=== PATIENT | female | born 1945 | race African-American/Black ===

== ENCOUNTER 2016-04-21 08:49 | Emergency (ER) | payer MEDICARE, OTHER ==
[~2016-04-21] VITALS: Ht 170.2 cm; Wt 68.0 kg
[~2016-04-21 08:49] MED LIST: ALBUTEROL SULF8.5 GM INH; ARMOUR THYROID120 MG ORAL; ARMOUR THYROID15 MG PO; ARMOUR THYROID30 MG ORAL; ARMOUR THYROID60 MG ORAL; ATENOLOL25 MG ORAL; ATENOLOL50 MG ORAL; AZITHROMYCIN250 MG ORAL; BENADRYL25 M3 PO; CIPRO500 MG PO; DOXEPIN HCL10 MG ORAL; DOXEPIN HCL25 MG ORAL; HYDROCHLOROTH12.5 M2 ORAL; HYDROCHLOROTHIA25 MG PO; KENALOG 0.1% CR15 GM APPLIC; NIFEDICAL XL30 MG ORAL; PHENERGAN6.25 MG/5 ORAL; PREDNISONE20 MG ORAL; SINEQUAN25 MG ORAL; TENORMIN25 MG ORAL
[2016-04-21] MEDS ORDERED: ARMOUR THYROID30 MG ORAL (09:01)
--- NOTE | 2016-04-21 09:10 | Emergency Room Report ---
History of Present Illness General Chief Complaint: Upper Respiratory Illness Source: Patient Present Illness HPI Patient presents with complaints of cough and congestion Ongoing since last month at the end of March Patient was at that time prescribed cough syrup along with Cipro Patient reports having a reaction with jaw stiffness And bruising with that medication therefore she stopped that medicine Denies any headache or visual changes denies any fevers denies any vomiting or diarrhea Denies any pleurisy Allergies: Coded Allergies: CIPROFLOXACIN (Verified Allergy, Unknown, 04/21/16) Patient History Past Medical History: see triage record Pertinent Family History: none Reviewed Nursing Documentation: PMH: Agreed, PSxH: Agreed Nursing Documentation-PMH Past Medical History: No History, Except For Hx Cardiac Problems: Yes - Hypothyroidism Hx Hypertension: Yes Hx Pacemaker: No Hx Asthma: No Hx COPD: No Hx Diabetes: No Hx Cancer: No Hx Gastrointestinal Problems: No Hx Dialysis: No History Of Psychiatric Problem: No Hx Neurological Problems: No Hx Cerebrovascular Accident: No Hx Seizures: No Review of Systems All Other Systems: negative except mentioned in HPI Physical Exam Vital Signs Date Time Temp Pulse Resp B/P Pulse Ox O2 Delivery O2 Flow Rate FiO2 04/21/16 08:53 97.7 77 16 164/104 99 Room Air Sp02 EP Interpretation: reviewed, normal General Appearance: well appearing, no apparent distress Head: normocephalic, atraumatic Eyes: bilateral eye EOMI, bilateral eye PERRL ENT: hearing grossly normal, normal pharynx, TMs + canals normal, uvula midline Neck: full range of motion, supple, no meningismus, no bony tend Respiratory: no rhonchi, no respiratory distress, no retraction, no accessory muscle use, crackles - Noted in both lower lobes Cardiovascular #1: normal peripheral pulses, regular rate, rhythm, no edema, no gallop, no JVD, no murmur Gastrointestinal: normal bowel sounds, non tender, soft, no mass, no organomegaly, non-distended, no guarding, no hernia, no pulsatile mass, no rebound Genitourinary: no CVA tenderness Musculoskeletal: normal inspection Neurologic: oriented x3, responsive, shellacker III-XII nml as tested, motor strength/ tone normal, sensory intact Psychiatric: mood/affect normal Skin: normal color, no rash, warm/dry, palpation normal Lymphatic: normal inspection, no adenopathy Medical Decision Making Diagnostic Impression: Primary Impression: Upper respiratory infection ER Course Multiple differentials are considered including but not limited to pneumonia, CHF Patient's chest x-ray is appropriate patient will have her medication changed as she had a reaction to the Cipro And will return with any changes Chest X-Ray Diagnostic Results EP Interpretation: Yes Findings: no consolidation, no effusion, no pneumothorax Number of Views: 1 Last Vital Signs Date Time Temp Pulse Resp B/P Pulse Ox O2 Delivery O2 Flow Rate FiO2 04/21/16 08:53 97.7 77 16 164/104 99 Room Air Status: improved Disposition: HOME, SELF-CARE Condition: Improved Scripts Prednisone* (PREDNISONE*) 20 Mg Tablet 20 MG ORAL BID, #5 TAB Prov: MARCO MARTINEZ D.O. 04/21/16 Albuterol Sulfate* (ALBUTEROL SULFATE MDI*) 8.5 Gm Hfa.aer.ad 2 PUFF INH Q6H, #1 INH 0 Refills Prov: MARCO MARTINEZ D.O. 04/21/16 Additional Instructions: Patient is provided with the discharge instructions notified to follow up with primary doctor in the next 2-3 days otherwise return to the er with any worsening symptoms. Please note that this report is being documented using Paper[employer]li technology. This can lead to erroneous entry secondary to incorrect interpretation by the dictating instrument. MARCO MARTINEZ D.O. Apr 21, 2016 09:10
[2016-04-21] MEDS ORDERED: Ipratropium 0.02% Inh Soln 2.5ml UD HHN ONE (09:15)
[2016-04-21] MEDS ORDERED: Albuterol ud Inhalation HHN ONE (09:15)
[2016-04-21] MEDS ORDERED: AZITHROMYCIN250 MG ORAL (09:52)
[2016-04-21] MEDS ORDERED: ALBUTEROL SULF8.5 GM INH (09:52)
[2016-04-21] MEDS ORDERED: PREDNISONE20 MG ORAL (09:52)
[2016-04-21 09:59] VITALS: BP 155/84
--- NOTE | 2016-04-21 12:20 | Diagnostic Imaging Report ---
Clinical history: Acute shortness of breath. Technique: Portable AP chest radiograph was obtained. Comparison: 01/16/16. Findings: The lungs are well inflated and clear. There is no pneumonia or pulmonary edema. There is no pleural effusion or pneumothorax. The cardiac and mediastinal silhouettes are normal in appearance. The bony thorax is unremarkable. Impression: No acute cardiopulmonary process.
== END 2016-04-21 10:00 | disposition home or self-care (01) ==
LOC: EMR 09:15
DX: J06.9 Acute upper respiratory infection, unspecified (principal); I10 Essential (primary) hypertension; E03.9 Hypothyroidism, unspecified; Z88.1 Allergy status to other antibiotic agents
CPT/HCPCS: 71010; 94640; 94664; 99284

== ENCOUNTER 2016-09-19 11:03 | Emergency (ER) | payer MEDICARE, OTHER ==
[~2016-09-19] VITALS: Ht 170.2 cm; Wt 70.3 kg
[2016-09-19 11:15] VITALS: BP 160/101
--- NOTE | 2016-09-19 12:16 | Emergency Room Report ---
History of Present Illness General Chief Complaint: Medication Refill Source: Patient Present Illness HPI The patient states she is out of her hypertension medications. She states that her primary care physician retired. She states that she has previously had very difficult to control blood pressure and is on multiple medications. She is planning on obtaining a new primary care physician through her insurance company. She has no other complaints or symptoms. She denies chest pain or shortness of breath. She denies headaches. She is here for medication refill. Allergies: Coded Allergies: CIPROFLOXACIN (Verified Allergy, Unknown, 04/21/16) Patient History Past Medical History: see triage record, HTN, other - Hypothyroid Reviewed Nursing Documentation: PMH: Agreed, PSxH: Agreed Nursing Documentation-PMH Hx Cardiac Problems: Yes - Hypothyroidism Hx Hypertension: Yes Hx Pacemaker: No Hx Asthma: No Hx COPD: No Hx Diabetes: No Hx Cancer: No Hx Gastrointestinal Problems: No Hx Dialysis: No Hx Neurological Problems: No Hx Cerebrovascular Accident: No Hx Seizures: No Review of Systems All Other Systems: negative except mentioned in HPI Physical Exam Vital Signs Date Time Temp Pulse Resp B/P Pulse Ox O2 Delivery O2 Flow Rate FiO2 09/19/16 11:10 98.1 60 20 160/101 100 Room Air Sp02 EP Interpretation: reviewed, normal General Appearance: no apparent distress, alert, GCS 15, non-toxic Head: normocephalic, atraumatic Eyes: bilateral eye PERRL, bilateral eye normal inspection ENT: hearing grossly normal, normal pharynx, no angioedema, normal voice Neck: full range of motion Respiratory: no respiratory distress, no retraction, no accessory muscle use, speaking full sentences Rectal: deferred Musculoskeletal: back normal, gait/station normal, normal range of motion, non- tender Neurologic: alert, oriented x3, responsive, motor strength/tone normal, sensory intact, speech normal Psychiatric: judgement/insight normal, memory normal, mood/affect normal, no suicidal/homicidal ideation Skin: normal color, no rash, warm/dry, well hydrated Medical Decision Making Diagnostic Impression: Primary Impression: Hypertension ER Course This patient presents medication refill. A refill her previously prescribed medications. She is instructed to obtain any primary care physician and that she should be seeing her primary care physician for followup and monitoring. She was educated on the dangers of obtaining her medications in emergency department. She indicated understanding. Last Vital Signs Date Time Temp Pulse Resp B/P Pulse Ox O2 Delivery O2 Flow Rate FiO2 09/19/16 11:15 98.1 20 160/101 100 Room Air 09/19/16 11:10 60 Disposition: HOME, SELF-CARE Condition: Referrals: NOT CHOSEN [facility]/,REFERRING (PCP) Patient Instructions: Medicine Refill at the Emergency Department SHAREE OSWALD D.O. Sep 19, 2016 12:15
[2016-09-19] MEDS ORDERED: HYDROCHLOROTHIA25 MG ORAL (12:20)
[2016-09-19] MEDS ORDERED: LOSARTAN POTASS25 MG ORAL (12:20)
[2016-09-19] MEDS ORDERED: DOXEPIN HCL25 MG ORAL (12:20)
[2016-09-19] MEDS ORDERED: ATENOLOL25 MG ORAL (12:20)
[2016-09-19 12:25] VITALS: BP 157/94
== END 2016-09-19 12:27 | disposition home or self-care (01) ==
LOC: EMR 11:31
DX: Z76.0 Encounter for issue of repeat prescription (principal); I10 Essential (primary) hypertension; E03.9 Hypothyroidism, unspecified
CPT/HCPCS: 99282

== ENCOUNTER 2017-11-17 18:43 | Emergency (ER) | payer MEDICARE, OTHER ==
[~2017-11-17] VITALS: Ht 170.2 cm; Wt 75.7 kg
[~2017-11-17 18:43] MED LIST changes: +HYDROCHLOROTHIA25 MG ORAL; +LOSARTAN POTASS25 MG ORAL
[2017-11-17 18:59] VITALS: BP 214/126
[2017-11-17 19:43] LABS: BASOPHILS % (AUTO) 1.2 % (0.0-2.0); EOSINOPHILS % (AUTO) 0.6 % (0.0-3.0); HEMATOCRIT 43.8 % (37.0-47.0); HEMOGLOBIN 14.9 G/DL (12.0-16.0); LYMPHOCYTES % (AUTO) 30.5 % (20.0-45.0); MEAN CORPUSCULAR VOLUME 94 FL (80-99); MONOCYTES % (AUTO) 6.2 % (1.0-10.0); NEUTROPHILS % (AUTO) 61.6 % (45.0-75.0); PLATELET COUNT 242 K/UL (150-450); RED BLOOD COUNT 4.66 M/UL (4.20-5.40); RED CELL DISTRIBUTION WIDTH 12.6 % (11.6-14.8); WHITE BLOOD COUNT 7.6 K/UL (4.8-10.8)
[2017-11-17 19:48] LABS: ANION GAP 10 mmol/L (5-15); BLOOD UREA NITROGEN 14 mg/dL (7-18); CALCIUM 9.4 MG/DL (8.5-10.1); CARBON DIOXIDE 29 MMOL/L (21-32); CHLORIDE 103 MMOL/L (98-107); CREATININE 1.2 MG/DL (0.55-1.30); POTASSIUM 3.5 MMOL/L (3.5-5.1); SODIUM 142 MMOL/L (136-145)
[2017-11-17 20:02] LABS: ALANINE AMINOTRANSFERASE 15 U/L (12-78); ALBUMIN 4.2 G/DL (3.4-5.0); ALKALINE PHOSPHATASE 94 U/L (46-116); ASPARTATE AMINO TRANSFERASE 17 U/L (15-37); BILIRUBIN,TOTAL 0.5 MG/DL (0.2-1.0); CKMB < 0.5 NG/ML (0.0-3.6); CREATINE KINASE 86 U/L (26-308)
[2017-11-17 20:10] VITALS: BP 200/104
--- NOTE | 2017-11-17 20:32 | Emergency Room Report ---
History of Present Illness General Chief Complaint: Hypertension Source: Patient Present Illness HPI This patient presents for high blood pressure. The patient has no specific physical complaints. She states that she was going to a routine appointment with her primary care physician to have her routine thyroid checked. During that visit she was identified to have a systolic blood pressure over 200. Her primary care physician sent her here to the emergency department for further evaluation. Patient denies headache or neck pain. She denies blurry vision. She denies chest pain or shortness of breath. She states that she has had difficult to control blood pressure for a very long time. She states the blood pressure has rarely been under control and she has been followed by a electronic security specialist. She states her blood pressure is almost never under 150s systolic. Allergies: Coded Allergies: CIPROFLOXACIN (Verified Allergy, Unknown, 04/21/16) Patient History Past Medical History: see triage record, HTN, other - Hypothyroid Social History: Denies: smoking, alcohol use, drug use Reviewed Nursing Documentation: PMH: Agreed; PSxH: Agreed Nursing Documentation-PMH Hx Cardiac Problems: Yes - Hypothyroidism Hx Hypertension: Yes Hx Pacemaker: No Hx Asthma: No Hx COPD: No Hx Diabetes: No Hx Cancer: No Hx Gastrointestinal Problems: No Hx Dialysis: No Hx Neurological Problems: No Hx Cerebrovascular Accident: No Hx Seizures: No Review of Systems All Other Systems: negative except mentioned in HPI Physical Exam Vital Signs Date Time Temp Pulse Resp B/P (MAP) Pulse Ox O2 Delivery O2 Flow Rate FiO2 11/17/17 18:50 97.9 53 17 214/126 97 Room Air 97.9 Sp02 EP Interpretation: reviewed, normal General Appearance: no apparent distress, alert, GCS 15, non-toxic Head: normocephalic, atraumatic Eyes: bilateral eye normal inspection, bilateral eye PERRL ENT: hearing grossly normal, normal pharynx, no angioedema, normal voice Neck: full range of motion, supple/symm/no masses Respiratory: chest non-tender, lungs clear, normal breath sounds, no respiratory distress, no retraction, no accessory muscle use, speaking full sentences Cardiovascular #1: regular rate, rhythm, no edema Gastrointestinal: normal bowel sounds, non tender, soft, non-distended, no guarding, no rebound Rectal: deferred Musculoskeletal: back normal, gait/station normal, normal range of motion, non- tender Neurologic: alert, oriented x3, responsive, motor strength/tone normal, sensory intact, speech normal Psychiatric: judgement/insight normal, memory normal, mood/affect normal, no suicidal/homicidal ideation Skin: normal color, no rash, warm/dry, well hydrated Medical Decision Making Diagnostic Impression: Primary Impression: Hypertension ER Course This patient presents with hypertension. She is asymptomatic. Also reassuring is a patient's laboratory workup which is unremarkable. This includes evaluation of her renal function with a BNP. Troponin is negative. Chest x- ray is unremarkable. This is chronic hypertension. I did review the patient's medications. She is on atenolol 25 mg once daily. I am unsure why she is only on one medication. Possibly she has had intolerances to other medications. I will start the patient on lisinopril 10 mg oral daily. She is instructed to follow-up closely with her primary care physician and monitor her blood pressure. At this time I did not identify an emergency medical condition. The patient is given close return precautions and follow-up instructions. Laboratory Tests Test 11/17/17 19:25 White Blood Count 7.6 K/UL (4.8-10.8) Red Blood Count 4.66 M/UL (4.20-5.40) Hemoglobin 14.9 G/DL (12.0-16.0) Hematocrit 43.8 % (37.0-47.0) Mean Corpuscular Volume 94 FL (80-99) Mean Corpuscular Hemoglobin 32.1 PG (27.0-31.0) H Mean Corpuscular Hemoglobin Concent 34.1 G/DL (32.0-36.0) Red Cell Distribution Width 12.6 % (11.6-14.8) Platelet Count 242 K/UL (150-450) Mean Platelet Volume 7.0 FL (6.5-10.1) Neutrophils (%) (Auto) 61.6 % (45.0-75.0) Lymphocytes (%) (Auto) 30.5 % (20.0-45.0) Monocytes (%) (Auto) 6.2 % (1.0-10.0) Eosinophils (%) (Auto) 0.6 % (0.0-3.0) Basophils (%) (Auto) 1.2 % (0.0-2.0) Sodium Level 142 MMOL/L (136-145) Potassium Level 3.5 MMOL/L (3.5-5.1) Chloride Level 103 MMOL/L (98-107) Carbon Dioxide Level 29 MMOL/L (21-32) Anion Gap 10 mmol/L (5-15) Blood Urea Nitrogen 14 mg/dL (7-18) Creatinine 1.2 MG/DL (0.55-1.30) Estimate Glomerular Filtration Rate 53.8 mL/min (>60) Glucose Level 95 MG/DL (74-106) Calcium Level 9.4 MG/DL (8.5-10.1) Total Bilirubin 0.5 MG/DL (0.2-1.0) Aspartate Amino Transferase (AST) 17 U/L (15-37) Alanine Aminotransferase (ALT) 15 U/L (12-78) Alkaline Phosphatase 94 U/L (46-116) Total Creatine Kinase 86 U/L (26-308) Creatine Kinase MB < 0.5 NG/ML (0.0-3.6) Creatine Kinase MB Relative Index 0.5 Troponin I 0.011 ng/mL (0.000-0.056) Total Protein 8.2 G/DL (6.4-8.2) Albumin 4.2 G/DL (3.4-5.0) Globulin 4.0 g/dL Albumin/Globulin Ratio 1.0 (1.0-2.7) EKG Diagnostic Results Rate: bradycardiac Rhythm: other - S.yadira ST Segments: no acute changes Rhythm Strip Diag. Results EP Interpretation: yes Rate: 50's Rhythm: no PVC's, no ectopy, other - S.bradycardia Chest X-Ray Diagnostic Results Chest X-Ray Diagnostic Results : Chest X-Ray Ordered: Yes # of Views/Limited/Complete: 1 View Indication: Other - HTN EP Interpretation: Yes Interpretation: no consolidation, no effusion, no pneumothorax, no acute cardiopulmonary disease Impression: No acute disease Electronically Signed by: Hany Last Vital Signs Date Time Temp Pulse Resp B/P (MAP) Pulse Ox O2 Delivery O2 Flow Rate FiO2 11/17/17 18:59 53 17 Room Air 11/17/17 18:59 97.9 214/126 97 97.9 Status: improved Disposition: HOME, SELF-CARE Condition: Improved Referrals: [facility],REFERRING (PCP) Alize Cason DO Nov 17, 2017 20:32
[2017-11-17] MEDS ORDERED: LISINOPRIL10 MG ORAL (20:44)
[2017-11-17] MEDS ORDERED: Lisinopril 10mg tab ORAL ONE (20:45)
[2017-11-17 21:10] VITALS: BP 186/90
[2017-11-17 21:25] VITALS: BP 186/90
--- NOTE | 2017-11-18 10:21 | Diagnostic Imaging Report ---
Indication: Dyspnea Comparison: 04/21/2016 A single view chest radiograph was obtained. Findings: Cardiomediastinal appearance is within normal limits for age. Pulmonary vascularity is appropriate. The diaphragmatic contour is smooth and costophrenic angles are sharp. No pleural effusions are identified. The bones are osteopenic. Impression: No acute findings
--- NOTE | 2017-11-18 14:46 | Cardiology Report ---
APPROVED REPORT EKG Measurement Heart [id number] Sinus bradycardia with sinus arrhythmia Possible Left atrial enlargement Septal infarct, age undetermined Abnormal ECG
== END 2017-11-17 21:25 | disposition home or self-care (01) ==
LOC: EMR 19:23
DX: I10 Essential (primary) hypertension (principal); E03.9 Hypothyroidism, unspecified; Z88.1 Allergy status to other antibiotic agents
CPT/HCPCS: 36415; 71045; 80053; 82550; 82553; 84439; 84443; 84481; 84484; 85025; 93005; 96374; 99284; J0360

== ENCOUNTER 2018-04-10 07:57 | Emergency (ER) | payer MEDICARE, OTHER ==
[~2018-04-10] VITALS: Ht 170.2 cm; Wt 68.0 kg
[~2018-04-10 07:57] MED LIST changes: +LISINOPRIL10 MG ORAL
[2018-04-10 08:05] VITALS: BP 164/107
--- NOTE | 2018-04-10 08:05 | NUR ---
ED Nurse Note: PT WALKED IN TO ER TODAY FROM HOME. AOX4. PT C/O PERSISTENT COUGH AND CONGESTION X 2 MONTHS. PT DENIES FEVER. RR20@98% O2 SAT ON RA AT BEDSIDE. NO SIGNS OF RESPIRATORY DISTRESS OR RETRACTIONS NOTED. RALES AND WHEEZING HEARD IN BILATERAL UPPER AND LOWER LOBES ON AUSCULTATION.
--- NOTE | 2018-04-10 08:19 | Emergency Room Report ---
History of Present Illness General Chief Complaint: Upper Respiratory Illness Source: Patient, Medical Record Present Illness HPI Patient presents with a cough over the past one month reports that in February was given a Z-Toribio and cough syrup She feels that the symptoms have persisted Patient also feels some congestion in the forehead and facial area Denies any chest pain denies any shortness of breath She has had a cough denies any sore throat Denies any recent travel denies any fevers Allergies: Coded Allergies: CIPROFLOXACIN (Verified Allergy, Unknown, 04/21/16) Patient History Past Medical History: see triage record Pertinent Family History: none Last Menstrual Period: menopause Reviewed Nursing Documentation: PMH: Agreed; PSxH: Agreed Nursing Documentation-PMH Past Medical History: No History, Except For Hx Cardiac Problems: No - Hypothyroidism Hx Hypertension: Yes Hx Pacemaker: No Hx Asthma: No Hx COPD: No Hx Diabetes: No Hx Cancer: No Hx Gastrointestinal Problems: No Hx Dialysis: No Hx Neurological Problems: No Hx Cerebrovascular Accident: No Hx Seizures: No Review of Systems All Other Systems: negative except mentioned in HPI Physical Exam Vital Signs Date Time Temp Pulse Resp B/P (MAP) Pulse Ox O2 Delivery O2 Flow Rate FiO2 04/10/18 08:01 98.2 89 18 167/112 96 Room Air Sp02 EP Interpretation: reviewed, normal General Appearance: well appearing, no apparent distress Head: normocephalic, atraumatic Eyes: bilateral eye PERRL, bilateral eye EOMI ENT: hearing grossly normal, normal pharynx, TMs + canals normal, uvula midline Neck: full range of motion, supple, no meningismus, no bony tend Respiratory: no rhonchi, no respiratory distress, no retraction, no accessory muscle use, crackles - Fine crackles bilaterally Cardiovascular #1: normal peripheral pulses, regular rate, rhythm, no edema, no gallop, no JVD, no murmur Gastrointestinal: normal bowel sounds, non tender, soft, no mass, no organomegaly, non-distended, no guarding, no hernia, no pulsatile mass, no rebound Genitourinary: no CVA tenderness Musculoskeletal: normal inspection Neurologic: oriented x3, responsive, veterinary poultry inspector III-XII nml as tested, motor strength/ tone normal, sensory intact Psychiatric: mood/affect normal Skin: normal color, no rash, warm/dry, palpation normal Lymphatic: normal inspection, no adenopathy Medical Decision Making Diagnostic Impression: Primary Impression: Sinusitis ER Course Patient has multiple differentials and consideration given the duration of the cough and symptoms x-ray imaging was obtained no obvious acute pathology is seen Patient's symptoms with sinusitis have been ongoing for over the past one month she meets criteria for antibiotic coverage and will have conservative outpatient trial Chest X-Ray Diagnostic Results Chest X-Ray Diagnostic Results : Chest X-Ray Ordered: Yes # of Views/Limited/Complete: 1 View Indication: Chest Pain EP Interpretation: Yes Interpretation: no consolidation, no effusion, no pneumothorax Impression: No acute disease Electronically Signed by: Jose R Kim DO Last Vital Signs Date Time Temp Pulse Resp B/P (MAP) Pulse Ox O2 Delivery O2 Flow Rate FiO2 04/10/18 08:01 98.2 89 18 167/112 96 Room Air Status: improved Disposition: HOME, SELF-CARE Condition: Improved Scripts Codeine/Promethazine Hcl* (PROMETHAZINE-CODEINE SYRUP*) 118 Ml Syrup 5 ML ORAL Q12 PRN for For Cough for 5 Days, ML 0 Refills Prov: Jose R Kim DO 04/10/18 Albuterol Sulfate* (ALBUTEROL SULFATE MDI*) 8.5 Gm Hfa.aer.ad 2 PUFF INH Q4H PRN for cough/wheezing, #1 EA 0 Refills Prov: Jose R Kim DO 04/10/18 Amoxicillin/Potassium Clav 875-125* (AUGMENTIN 875-125 TABLET*) 1 Each Tablet 1 TAB ORAL TWICE A DAY, #20 TAB Prov: Jose R Kim DO 04/10/18 Additional Instructions: Patient is provided with the discharge instructions notified to follow up with primary doctor in the next 2-3 days otherwise return to the er with any worsening symptoms. Please note that this report is being documented using Agendize technology. This can lead to erroneous entry secondary to incorrect interpretation by the dictating instrument. Jose R Kim DO Apr 10, 2018 08:19
--- NOTE | 2018-04-10 08:32 | NUR ---
ED Nurse Note: XRAY AT BEDSIDE
[2018-04-10] MEDS ORDERED: ALBUTEROL SULF8.5 GM INH (09:31)
[2018-04-10] MEDS ORDERED: AUGMENTIN 875-1 EAC1 ORAL (09:31)
[2018-04-10] MEDS ORDERED: PROMETHAZINE-C118 M1 ORAL (09:31)
[2018-04-10 09:36] VITALS: BP 160/99
--- NOTE | 2018-04-10 09:40 | NUR ---
ED Nurse Note: PT LAYING PEACEFULLY IN BED IN NAD. AOX4. PRESCRIPTIONS AND DISCHARGE PAPERWORK EXPLAINED TO PT. PT VERBALIZES UNDERSTANDING AND ALL QUESTIONS ANSWERED. PRESCRIPTIONS AND DISCHARGE PAPERWORK GIVEN TO PT AND ID WRISTBAND REMOVED. PT WALKED OUT OF ER WITH STEADY GAIT AND ALL BELONGINGS.
--- NOTE | 2018-04-10 10:18 | Diagnostic Imaging Report ---
Indication: Shortness of breath Technique: One view of the chest Comparison: 11/17/2017 Findings: Lungs and pleural spaces are clear. Heart size is normal. No significant change Impression: No acute process
== END 2018-04-10 09:40 | disposition home or self-care (01) ==
LOC: EMR 08:33
DX: J32.9 Chronic sinusitis, unspecified (principal); I10 Essential (primary) hypertension; E03.9 Hypothyroidism, unspecified
CPT/HCPCS: 71045; 99283

== ENCOUNTER 2018-12-21 09:59 | Emergency (ER) | payer MEDICARE, OTHER ==
[~2018-12-21] VITALS: Ht 170.2 cm; Wt 68.0 kg
[~2018-12-21 09:59] MED LIST changes: +AUGMENTIN 875-1 EAC1 ORAL; +PROMETHAZINE-C118 M1 ORAL
--- NOTE | 2018-12-21 10:20 | NUR ---
ED Nurse Note: PT WALKED IN TO ER TODAY FROM HOME. AOX4. PT C/O NASAL CONGESTION, HEADACHE, AND COUGH X YESTERDAY. PT SPEAKING IN FULL SENTENCES. NO SIGNS OF RESPIRATORY DISTRESS, RETRACTIONS, OR ACCESSORY MUSCLE USE NOTED. RR18, O2 SAT 100% ON RA. DR DIANE AT BEDSIDE FOR EVALUATION.
[2018-12-21 10:21] VITALS: BP 151/89
[2018-12-21] MEDS ORDERED: ALBUTEROL SULF8.5 GM INH (10:26)
[2018-12-21] MEDS ORDERED: AUGMENTIN 875-1 EAC1 ORAL (10:26)
[2018-12-21] MEDS ORDERED: PROMETHAZINE-C118 M1 ORAL ×2 (10:26→10:28)
--- NOTE | 2018-12-21 10:27 | Emergency Room Report ---
History of Present Illness General Chief Complaint: Upper Respiratory Illness Source: Patient Present Illness HPI 73-year-old female presents with cough, congestion, sinus pain bilaterally aching nature no aggravating relieving factors severity is moderate, constant, patient endorses subjective fever/chills, patient presents for evaluation. Does have been ongoing x1 day. Allergies: Coded Allergies: CIPROFLOXACIN (Verified Allergy, Unknown, 04/21/16) Patient History Past Medical History: see triage record Reviewed Nursing Documentation: PMH: Agreed; PSxH: Agreed Nursing Documentation-PMH Past Medical History: No History, Except For Hx Cardiac Problems: No - Hypothyroidism Hx Hypertension: Yes Hx Pacemaker: No Hx Asthma: No Hx COPD: No Hx Diabetes: No Hx Cancer: No Hx Gastrointestinal Problems: No Hx Dialysis: No Hx Neurological Problems: No Hx Cerebrovascular Accident: No Hx Seizures: No Review of Systems All Other Systems: negative except mentioned in HPI Physical Exam Vital Signs Date Time Temp Pulse Resp B/P (MAP) Pulse Ox O2 Delivery O2 Flow Rate FiO2 12/21/18 10:04 98.1 93 18 171/102 (125) 100 Room Air Sp02 EP Interpretation: reviewed, normal General Appearance: well appearing, no apparent distress, alert Head: normocephalic, atraumatic Eyes: bilateral eye PERRL, bilateral eye EOMI ENT: uvula midline, moist mucus membranes, nasal congestion, other - Transillumination positive, no prominence of the sinus membranes Neck: supple, thyroid normal, supple/symm/no masses Respiratory: lungs clear, no respiratory distress, no retraction, no accessory muscle use Cardiovascular #1: normal peripheral pulses, regular rate, rhythm, no edema, no gallop, no murmur Gastrointestinal: non tender, soft, no guarding, no rebound Musculoskeletal: normal inspection Neurologic: alert, oriented x3 Psychiatric: mood/affect normal Skin: no rash, warm/dry Medical Decision Making Diagnostic Impression: Primary Impression: Sinusitis Qualified Codes: J01.90 - Acute sinusitis, unspecified ER Course 73-year-old female presents with sinusitis, patient with exquisite pain, counseled patient on supportive care. Start antibiotics due to complete opacification of the sinuses on physical exam concerning for bacterial sinusitis given her presentation. Cures report RAN Last Vital Signs Date Time Temp Pulse Resp B/P (MAP) Pulse Ox O2 Delivery O2 Flow Rate FiO2 12/21/18 10:21 73 18 Room Air 10/14/19 10:04 98.1 171/102 (125) 100 Disposition: HOME, SELF-CARE Condition: Stable Scripts Codeine/Promethazine Hcl* (PROMETHAZINE-CODEINE SYRUP*) 118 Ml Syrup 5 ML ORAL Q12HR PRN for For Cough for 5 Days, #5 ML 0 Refills Prov: Lester Rae MD 12/21/18 Amoxicillin/Potassium Clav 875-125* (AUGMENTIN 875-125 TABLET*) 1 Each Tablet 1 TAB ORAL TWICE A DAY, #20 TAB Prov: Lester Rae MD 12/21/18 Albuterol Sulfate* (ALBUTEROL SULFATE MDI*) 8.5 Gm Hfa.aer.ad 2 PUFF INH Q4H PRN for cough/wheezing, #1 EA 0 Refills Prov: Lester Rae MD 12/21/18 Referrals: NON PHYSICIAN (PCP) [facility] Patient Instructions: Sinusitis, Adult, [id number] Additional Instructions: The patient was provided with discharge instructions, notified to follow-up with a primary care doctor and or specialist in the next 24-48 hours, and to return to the ED if they have worsening of their symptoms. Please note that this report is being documented using Highfive technology. This can lead to erroneous entry secondary to incorrect interpretation by the dictating instrument. Lester Rae MD Dec 21, 2018 10:27
[2018-12-21 10:32] VITALS: BP 148/86
== END 2018-12-21 10:33 | disposition home or self-care (01) ==
LOC: EMR 10:17
DX: J01.90 Acute sinusitis, unspecified (principal); I10 Essential (primary) hypertension; E03.9 Hypothyroidism, unspecified; Z88.1 Allergy status to other antibiotic agents
CPT/HCPCS: 99282

== ENCOUNTER 2019-05-10 09:34 | Emergency (ER) | payer MEDICARE, OTHER ==
[~2019-05-10] VITALS: Ht 170.2 cm; Wt 68.0 kg
--- NOTE | 2019-05-10 09:49 | NUR ---
ED Nurse Note: Pt walked into ED for coughing, congestion, CORLEY 5/10 x1 week. Pt lungs sounds bilateral have expiratory wheezing. Pt denies nausea, vomiting, diarrhea. Pt has body aches 5/10. Pt is alert and orientedx4, ambulatory. EKG taken. Pt set up to monitor.
[2019-05-10 09:54] VITALS: BP 154/96
--- NOTE | 2019-05-10 10:05 | Emergency Room Report ---
History of Present Illness General Chief Complaint: Upper Respiratory Illness Source: Patient Present Illness HPI Patient presents with several days of worsening sinus drainage and discomfort. She also is around others who smoke. She presents every year with sinus infection and also upper respiratory symptoms. She has used inhalers in the past. She is producing green phlegm. There is no blood. Fairly copious both from her nose and also from her lungs. She denies chest pain. She has heard abnormal sounds in her lungs. There is no nausea, vomiting or diarrhea. No dysuria. No rashes. No joint discomfort. No headache. In the past she is used steroid sprays for her nose. She rates the pain in her sinuses and had 5/ 10, pressure and aching without radiation. She denies visual changes. Allergies: Coded Allergies: CIPROFLOXACIN (Verified Allergy, Unknown, 04/21/16) Patient History Past Medical History: see triage record Social History: Denies: smoking - Secondhand Social History Narrative In a house with multiple roommates Reviewed Nursing Documentation: PMH: Agreed; PSxH: Agreed Nursing Documentation-PMH Past Medical History: No History, Except For Hx Hypertension: Yes Hx Pacemaker: No Hx Asthma: No Hx COPD: No Hx Diabetes: No Hx Cancer: No Hx Gastrointestinal Problems: No Hx Dialysis: No Hx Neurological Problems: No Hx Cerebrovascular Accident: No Hx Seizures: No Review of Systems All Other Systems: negative except mentioned in HPI Physical Exam Vital Signs Date Time Temp Pulse Resp B/P (MAP) Pulse Ox O2 Delivery O2 Flow Rate FiO2 05/10/19 09:37 98.1 110 15 145/95 (112) 100 Room Air 05/10/19 09:54 100 Sp02 EP Interpretation: reviewed, normal General Appearance: well appearing, no apparent distress, GCS 15, non-toxic Head: normocephalic Eyes: bilateral eye normal inspection, bilateral eye PERRL, bilateral eye EOMI ENT: TMs + canals normal, moist mucus membranes, other - Discharge from nose purulent Neck: full range of motion, supple, no bony tend Respiratory: wheezing, expiration Cardiovascular #1: regular rate, rhythm, no edema Cardiovascular #2: 2+ radial (R) Gastrointestinal: normal inspection, normal bowel sounds, non tender, no mass, non-distended Genitourinary: no CVA tenderness Musculoskeletal: back normal, normal range of motion, no calf tenderness, gait/ station normal Neurologic: alert, oriented x3, grossly normal Psychiatric: mood/affect normal Skin: no rash, warm/dry Medical Decision Making Diagnostic Impression: Primary Impression: Asthmatic bronchitis Qualified Codes: J45.41 - Moderate persistent asthma with (acute) exacerbation Additional Impressions: Sinusitis Qualified Codes: J01.91 - Acute recurrent sinusitis, unspecified Renal insufficiency ER Course Patient presents with cough and sinus pain. Differential includes sinusitis, viral upper respiratory infection, asthma, asthmatic bronchitis, pneumonia amongst others. Cardiac injury needs to be excluded. Evaluation with EKG, chest x-ray and labs. Treatment with breathing treatments, steroids and decongestant. EKG without injury. Chest x-ray no infiltrates. CBC normal. CMP with elevated BUN and creatinine. Antibiotics indicated for asthmatic bronchitis. Patient improved with treatment. Discussed treatment plan with patient and the need for outpatient follow-up. Also discussed that secondhand smoke was contributing to her illnesses. Patient stable for outpatient observation and treatment. Laboratory Tests Test 05/10/19 10:15 05/10/19 10:55 White Blood Count 7.3 K/UL (4.8-10.8) Red Blood Count 4.65 M/UL (4.20-5.40) Hemoglobin 15.0 G/DL (12.0-16.0) Hematocrit 43.9 % (37.0-47.0) Mean Corpuscular Volume 95 FL (80-99) Mean Corpuscular Hemoglobin 32.3 PG (27.0-31.0) H Mean Corpuscular Hemoglobin Concent 34.1 G/DL (32.0-36.0) Red Cell Distribution Width 12.6 % (11.6-14.8) Platelet Count 227 K/UL (150-450) Mean Platelet Volume 6.0 FL (6.5-10.1) L Neutrophils (%) (Auto) 71.5 % (45.0-75.0) Lymphocytes (%) (Auto) 20.1 % (20.0-45.0) Monocytes (%) (Auto) 7.0 % (1.0-10.0) Eosinophils (%) (Auto) 1.0 % (0.0-3.0) Basophils (%) (Auto) 0.5 % (0.0-2.0) Prothrombin Time 10.2 SEC (9.30-11.50) Prothrombin Time INR 1.0 (0.9-1.1) Activated Partial Thromboplast Time 31 SEC (23-33) Sodium Level 145 MMOL/L (136-145) Potassium Level 3.8 MMOL/L (3.5-5.1) Chloride Level 107 MMOL/L (98-107) Carbon Dioxide Level 22 MMOL/L (21-32) Anion Gap 16 mmol/L (5-15) H Blood Urea Nitrogen 15 mg/dL (7-18) Creatinine 1.6 MG/DL (0.55-1.30) H Estimate Glomerular Filtration Rate 38.4 mL/min (>60) Glucose Level 86 MG/DL (74-106) Calcium Level 9.2 MG/DL (8.5-10.1) Total Bilirubin 0.4 MG/DL (0.2-1.0) Aspartate Amino Transferase (AST) 14 U/L (15-37) L Alanine Aminotransferase (ALT) 16 U/L (12-78) Alkaline Phosphatase 91 U/L (46-116) Total Creatine Kinase 74 U/L (26-308) Troponin I 0.022 ng/mL (0.000-0.056) Pro-B-Type Natriuretic Peptide 105 pg/mL (0-125) Total Protein 7.8 G/DL (6.4-8.2) Albumin 3.9 G/DL (3.4-5.0) Globulin 3.9 g/dL Albumin/Globulin Ratio 1.0 (1.0-2.7) Urine Color Yellow Urine Appearance Clear Urine pH 5 (4.5-8.0) Urine Specific [place] 1.025 (1.005-1.035) Urine Protein 2+ (NEGATIVE) H Urine Glucose (UA) Negative (NEGATIVE) Urine Ketones 1+ (NEGATIVE) H Urine Blood Negative (NEGATIVE) Urine Nitrite Negative (NEGATIVE) Urine Bilirubin 1+ (NEGATIVE) H Urine Ictotest Negative (NEGATIVE) Urine Urobilinogen 4 MG/DL (0.0-1.0) H Urine Leukocyte Esterase 1+ (NEGATIVE) H Urine RBC 0-2 /HPF (0 - 2) Urine WBC 2-4 /HPF (0 - 2) Urine Squamous Epithelial Cells Many /LPF (NONE/OCC) H Urine Bacteria Moderate /HPF (NONE) H EKG Diagnostic Results Rate: normal Rhythm: NSR ST Segments: no acute changes Rhythm Strip Diag. Results EP Interpretation: yes Rhythm: NSR, no PVC's, no ectopy Chest X-Ray Diagnostic Results Chest X-Ray Diagnostic Results : Chest X-Ray Ordered: Yes # of Views/Limited/Complete: 1 View Indication: Shortness of Breath EP Interpretation: Yes Interpretation: no consolidation, no effusion, no pneumothorax, other - COPD Impression: Other Electronically Signed by: Electronically signed by Osmar Banegas MD Last Vital Signs Date Time Temp Pulse Resp B/P (MAP) Pulse Ox O2 Delivery O2 Flow Rate FiO2 05/10/19 13:02 98.1 82 16 152/60 100 Room Air 21 Status: improved Disposition: HOME, SELF-CARE Condition: Improved Scripts Prednisone* (PREDNISONE*) 20 Mg Tablet 40 MG ORAL DAILY, #10 TAB Prov: Osmar Banegas MD 05/10/19 Chlorpheniramine Maleate (CHLOR-TRIMETON) 4 Mg Tablet 4 MG PO Q6HR, #14 TAB Prov: Osmar Banegas MD 05/10/19 Doxycycline Monohydrate* (DOXYCYCLINE MONOHYDRATE*) 100 Mg Capsule 100 MG ORAL Q12H, #14 CAP 0 Refills Prov: Osmar Banegas MD 05/10/19 Albuterol Sulfate* (ALBUTEROL SULFATE MDI*) 8.5 Gm Hfa.aer.ad 2 PUFF INH Q6H, #1 EA 0 Refills Prov: Osmar Banegas MD 05/10/19 Osmar Banegas MD May 10, 2019 10:05
[2019-05-10] MEDS ORDERED: Albuterol ud Inhalation HHN ONE (10:15)
[2019-05-10] MEDS ORDERED: Ipratropium 0.02% Inh Soln 2.5ml UD HHN ONE (10:15)
[2019-05-10] MEDS ORDERED: Solu-MEDROL 125mg Inj IVP ONE (10:15)
[2019-05-10] MEDS ORDERED: Pseudoephedrine 30mg tab ORAL ONE (10:15)
[2019-05-10 10:27] LABS: BASOPHILS % (AUTO) 0.5 % (0.0-2.0); HEMATOCRIT 43.9 % (37.0-47.0); LYMPHOCYTES % (AUTO) 20.1 % (20.0-45.0); MEAN CORPUSCULAR VOLUME 95 FL (80-99); NEUTROPHILS % (AUTO) 71.5 % (45.0-75.0); PLATELET COUNT 227 K/UL (150-450); RED BLOOD COUNT 4.65 M/UL (4.20-5.40); RED CELL DISTRIBUTION WIDTH 12.6 % (11.6-14.8); WHITE BLOOD COUNT 7.3 K/UL (4.8-10.8)
[2019-05-10 10:45] LABS: ANION GAP 16 mmol/L (5-15); BLOOD UREA NITROGEN 15 mg/dL (7-18); CALCIUM 9.2 MG/DL (8.5-10.1); CARBON DIOXIDE 22 MMOL/L (21-32); CHLORIDE 107 MMOL/L (98-107); CREATININE 1.6 MG/DL (0.55-1.30); POTASSIUM 3.8 MMOL/L (3.5-5.1); SODIUM 145 MMOL/L (136-145)
--- NOTE | 2019-05-10 10:50 | Diagnostic Imaging Report ---
Indication: Dyspnea Comparison: 04/10/2018 A single view chest radiograph was obtained. Findings: No definite infiltrate or pulmonary vascular congestion identified. The heart is normal size. The aorta is mildly enlarged consistent with atherosclerotic vascular disease. The bones are osteopenic. There are thoracic vertebral enthesophytes at multiple levels. Impression: No acute disease
[2019-05-10 10:57] LABS: ALANINE AMINOTRANSFERASE 16 U/L (12-78); ALBUMIN 3.9 G/DL (3.4-5.0); ALKALINE PHOSPHATASE 91 U/L (46-116); ASPARTATE AMINO TRANSFERASE 14 U/L (15-37); BILIRUBIN,TOTAL 0.4 MG/DL (0.2-1.0); CREATINE KINASE 74 U/L (26-308)
[2019-05-10 11:12] LABS: APPEARANCE,URINE CLEAR; BILIRUBIN, URINE 1+ (NEGATIVE); GLUCOSE, URINE (UA) NEGATIVE (NEGATIVE); KETONES,URINE 1+ (NEGATIVE); LEUKOCYTE ESTERASE ,URINE 1+ (NEGATIVE); NITRITE,URINE NEGATIVE (NEGATIVE); PH,URINE 5 (4.5-8.0); PROTEIN,URINE 2+ (NEGATIVE); UROBILINOGEN,URINE 4 MG/DL (0.0-1.0)
[2019-05-10 11:23] LABS: COLOR,URINE YELLOW
[2019-05-10 11:46] VITALS: BP 157/70
[2019-05-10] MEDS ORDERED: CHLOR-TRIMETON4 MG PO (12:50)
[2019-05-10] MEDS ORDERED: DOXYCYCLINE MO100 MG ORAL (12:50)
[2019-05-10] MEDS ORDERED: ALBUTEROL SULF8.5 GM INH (12:50)
[2019-05-10] MEDS ORDERED: PREDNISONE20 MG ORAL (12:50)
--- NOTE | 2019-05-10 13:01 | NUR ---
ER DISCHARGE NOTE: Patient is cleared to be discharged per ERMD, pt is aox4, on room air, with stable vital signs. pt was given dc and prescription instructions, pt was able to verbalize understanding, pt id band and iv site removed without complications. pt is able to ambulate with steady gait. pt took all belongings. Pt instructed about secondhand smoke and pMD appt.
[2019-05-10 13:02] VITALS: BP 152/60
== END 2019-05-10 13:04 | disposition home or self-care (01) ==
LOC: EMR 10:22
DX: J45.51 Severe persistent asthma with (acute) exacerbation (principal); J01.91 Acute recurrent sinusitis, unspecified; N28.9 Disorder of kidney and ureter, unspecified; I10 Essential (primary) hypertension; Z88.8 Allergy status to other drugs, medicaments and biological substances
CPT/HCPCS: 36415; 71045; 80053; 81003; 82550; 83880; 84484; 85025; 85610; 85730; 87086; 93005; 96374; 99284; J2930

== ENCOUNTER 2019-05-28 09:33 | Emergency (ER) | payer MEDICARE, OTHER ==
[~2019-05-28] VITALS: Ht 170.2 cm; Wt 68.0 kg
[~2019-05-28 09:33] MED LIST changes: +CHLOR-TRIMETON4 MG PO; +DOXYCYCLINE MO100 MG ORAL
[2019-05-28 09:51] VITALS: BP 140/89
[2019-05-28] MEDS ORDERED: ATENOLOL25 MG ORAL (10:16)
[2019-05-28] MEDS ORDERED: HYDROCHLOROTHIA25 MG ORAL (10:16)
[2019-05-28] MEDS ORDERED: DOXYCYCLINE MO100 MG ORAL (10:16)
[2019-05-28 10:19] VITALS: BP 136/91
--- NOTE | 2019-05-28 11:42 | Emergency Room Report ---
History of Present Illness General Chief Complaint: Hypertension Source: Patient Present Illness HPI 74-year-old female presents for evaluation of high blood pressure. States she checked her BP at home yesterday and it was systolic 170. States she takes atenolol and hydrochlorothiazide and she ran out of her medication. BP in triage 143 systolic. Denies chest pain or shortness of breath. Denies fevers or chills. States that she was seen here 2 weeks ago for a cough which has improved but persists. Is dry. Denies sick contacts or recent travel. No other aggravating relieving factors. Denies any other associated symptoms COVID-19 risk:Contact w/high r: No COVID-19 risk:Travel to affect: No Has patient experienced heard: No Allergies: Coded Allergies: CIPROFLOXACIN (Verified Allergy, Unknown, 04/21/16) Patient History Past Medical History: HTN Past Surgical History: none Pertinent Family History: none Social History: Denies: smoking, alcohol use, drug use Now: No Immunizations: UTD Reviewed Nursing Documentation: PMH: Agreed; PSxH: Agreed Nursing Documentation-PMH Past Medical History: No History, Except For Hx Hypertension: Yes Hx Pacemaker: No Hx Asthma: No Hx COPD: No Hx Diabetes: No Hx Cancer: No Hx Gastrointestinal Problems: No Hx Dialysis: No Hx Neurological Problems: No Hx Cerebrovascular Accident: No Hx Seizures: No Review of Systems All Other Systems: negative except mentioned in HPI Physical Exam Vital Signs Date Time Temp Pulse Resp B/P (MAP) Pulse Ox O2 Delivery O2 Flow Rate FiO2 05/28/19 09:36 97.3 103 18 143/93 (110) 94 05/28/19 09:51 Room Air Sp02 EP Interpretation: reviewed, normal General Appearance: no apparent distress, alert, GCS 15, non-toxic Head: normocephalic, atraumatic Eyes: bilateral eye normal inspection, bilateral eye PERRL ENT: hearing grossly normal, normal pharynx, no angioedema, normal voice Neck: full range of motion, supple/symm/no masses Respiratory: chest non-tender, lungs clear, normal breath sounds, speaking full sentences Cardiovascular #1: regular rate, rhythm, no edema Cardiovascular #2: 2+ carotid (R), 2+ carotid (L), 2+ radial (R), 2+ radial (L) , 2+ dorsalis pedis (R), 2+ dorsalis pedis (L) Gastrointestinal: normal bowel sounds, non tender, soft, non-distended, no guarding, no rebound Rectal: deferred Genitourinary: normal inspection, no CVA tenderness Musculoskeletal: back normal, normal range of motion, gait/station normal, non- tender Neurologic: alert, motor strength/tone normal, oriented x3, sensory intact, responsive, speech normal Psychiatric: judgement/insight normal, memory normal, mood/affect normal, no suicidal/homicidal ideation Reflexes: 3+ bicep (R), 3+ bicep (L), 3+ tricep (R), 3+ tricep (L), 3+ knee (R) , 3+ knee (L) Lymphatic: no adenopathy Medical Decision Making Diagnostic Impression: Primary Impression: Atypical pneumonia Additional Impression: Hypertension Qualified Codes: I10 - Essential (primary) hypertension ER Course Hospital Course 74-year-old female presents with high blood pressure. Also complaining of cough Differential diagnoses include: URI, pharyngitis, otitis media, asthma Clinical course Patient placed on stretcher. Placed in isolation for precaution. I wore full protective equipment. After initial history, physical exam reveals a female in no acute distress. Bilateral TM unremarkable. No pharyngeal erythema. No tonsillar exudates. No lymphadenopathy. lungs clear. abdomen soft. Patient afebrile, nontoxic-appearing. In ED BP within normal limits. Will provide refills of her atenolol and hydrochlorothiazide. Given persistence of cough I will prescribe antibiotics. I did discuss current coronavirus pandemic. The patient should be self isolating for 14 days. Patient agrees. Safe for discharge for close outpatient follow-up. States she has a PMD Diagnosis - atypical pneumonia, hypertension Stable and discharged home with Rx Doxycycline, atenolol, hydrochlorothiazide. self-isolate for 14 days. Instructed to followup with PMD. Return to ED if symptoms recur or worsen Last Vital Signs Date Time Temp Pulse Resp B/P (MAP) Pulse Ox O2 Delivery O2 Flow Rate FiO2 05/28/19 10:19 98.2 98 18 136/91 99 Room Air Status: improved Disposition: HOME, SELF-CARE Condition: Stable Scripts Doxycycline Monohydrate* (DOXYCYCLINE MONOHYDRATE*) 100 Mg Capsule 100 MG ORAL Q12H, #14 CAP 0 Refills Prov: Rory Sandhu MD 05/28/19 Hydrochlorothiazide* (HYDROCHLOROTHIAZIDE*) 25 Mg Tablet 25 MG ORAL DAILY, #30 TAB Prov: Rory Sandhu MD 05/28/19 Atenolol* (TENORMIN*) 25 Mg Tablet 25 MG ORAL DAILY for 30 Days, #30 TAB Prov: Rory Sandhu MD 05/28/19 Referrals: NON PHYSICIAN (PCP) Patient Instructions: Community-Acquired Pneumonia, Adult, [id number] Additional Instructions: in light of current coronavirus pandemic, we encourage you to go home and self- isolate. Rory Sandhu MD May 28, 2019 11:42
== END 2019-05-28 10:21 | disposition home or self-care (01) ==
LOC: EMR 09:45
DX: J18.9 Pneumonia, unspecified organism (principal); I10 Essential (primary) hypertension; Z88.1 Allergy status to other antibiotic agents
CPT/HCPCS: 99282